=== PATIENT | female | born 1955 | race Caucasian/White ===

== ENCOUNTER 2019-04-13 21:32 | Inpatient (IN) | payer OTHER ==
[~2019-04-13] VITALS: Ht 167.6 cm; Wt 69.4 kg
[~2019-04-13 21:32] MED LIST: ASPI-1 PO; ATOR1TAB19 PO; GABA-843 PO; PANT40TA3 PO; PERC5TAB12 PO; SERT-138 PO; SUCR1TAB56 PO; ZANA4TAB PO
[2019-04-13] MEDS ORDERED: NS 1,000 ML IV ONE (22:15)
[2019-04-13 22:32] LABS: BASO % 0.4 % (0.0-1.0); EOS # 0.1 10^3/uL (0.0-0.50); EOS % 0.5 % (0.0-3.0); HEMATOCRIT 40.3 % (36.0-47.0); HEMOGLOBIN 13.8 g/dl (12.0-15.5); LYMPH # 1.4 10^3/uL (1.5-4.5); LYMPH % 13.6 % (24.0-44.0); MEAN CORPUSCULAR HEMOGLOBIN 30.3 pg (27.0-33.0); MEAN CORPUSCULAR HGB CONC 34.2 g/dl (32.0-36.5); MEAN CORPUSCULAR VOLUME 88.6 fl (80.0-96.0); MONO # 0.5 10^3/uL (0.0-0.8); MONO % 5.1 % (0.0-5.0); NEUTROPHILS # 8.3 10^3/uL (1.8-7.7); NEUTROPHILS % 80.1 % (36.0-66.0); PLATELET COUNT, AUTOMATED 165 10^3/uL (150-450); RED BLOOD COUNT 4.55 10^6/uL (4.00-5.40); WHITE BLOOD COUNT 10.3 10^3/uL (4.0-10.0)
[2019-04-13] MEDS ORDERED: ACETAMINOPHEN TAB 650MG DOSE (2X325MG) PO ONE (23:00)
[2019-04-13] MEDS ORDERED: ONDANSETRON 4MG/2ML VIAL (J2405) IV ONE (23:00)
[2019-04-13 23:13] LABS: BLOOD UREA NITROGEN 14 MG/DL (7-18); CALCIUM LEVEL 9.7 MG/DL (8.8-10.2); CARBON DIOXIDE LEVEL 26 MEQ/L (21-32); CHLORIDE LEVEL 109 MEQ/L (98-107); CPK CREATINE PHOSPHOKINASE 144 U/L (26-192); CREATININE FOR GFR 0.95 MG/DL (0.55-1.30); GLOMERULAR FILTRATION RATE > 60.0 (>45); GLUCOSE, FASTING 147 MG/DL (70-100); POTASSIUM SERUM 3.8 MEQ/L (3.5-5.1); SODIUM LEVEL 144 MEQ/L (136-145)
[2019-04-14 00:49] LABS: ETHYL ALCOHOL (ETHANOL) < 0.003 % (0.000-0.010)
[2019-04-14 01:51] LABS: AMPHETAMINES LEVEL URINE NEGATIVE (NEGATIVE); BARBITURATES URINE NEGATIVE (NEGATIVE); BENZODIAZEPINES URINE POSITIVE (NEGATIVE); CANNABINOIDS URINE POSITIVE (NEGATIVE); COCAINE METABOLITE URINE NEGATIVE (NEGATIVE); METHADONE URINE NEGATIVE (NEGATIVE); OPIATES URINE NEGATIVE (NEGATIVE); PHENCYCLIDINE URINE NEGATIVE (NEGATIVE)
[2019-04-14] MEDS ORDERED: ACETAMINOPHEN TAB 650MG DOSE (2X325MG) PO PRN (02:30)
[2019-04-14] MEDS ORDERED: OLANZapine ORAL DISINTEGRATING TAB 5MG PO PRN (02:30)
[2019-04-14] MEDS ORDERED: MOM 30ML SUSPENSION UDC PO PRN (02:30)
[2019-04-14] MEDS ORDERED: traZODone 50 MG TAB PO PRN (02:30)
[2019-04-14] MEDS ORDERED: MAALOX 30 ML SUSP *UDC PO PRN (02:30)
[2019-04-14] MEDS ORDERED: cloNIDine 0.2 MG TAB As Ordered ONE (02:54)
[2019-04-14] MEDS ORDERED: cloNIDine 0.2 MG TAB PO ONE (03:00)
[2019-04-14 03:44] VITALS: BP 141/93
--- NOTE | 2019-04-14 10:34 | MHHPEPDOC ---
[facility] History & Physical History and Physical New Patient Estrella Ascencio MRN: N/[id number] Date of : N/A Date of Service: 04/14/2019 Chief Complaint "I don't know why I'm here." History of Present Illness The patient a 63-year-old woman with no known past psychiatric history presents to the ER, initially dehydrated, found wandering in the streets during a heat wa ve. She was fairly dehydrated after being rehydrated in the ER unit. She was subsequently found to be fairly distorted and unable to maintain any coherent discussion. She appeared to be disorganized and bizarre. Collateral information from friends and family in the local area report that she had recently appeared in the area unbeknownst to them and had been acting fairly bizarre when she had approached them. It was difficult to gather any history as the patient's fairly tangential and very unredirectable. Review Of Systems The patient was too unredirectable in order to get a coherent set of review of systems. Past Psychiatric History The patient has no previous psych admissions per collateral information. Reportedly, her primary care prescribed her Zoloft for "back pain," but has never reportedly seen a psychiatrist or been treated with other medications. Unknown if any history of suicide attempts. Allergies Please see below. Family Psychiatric History Unclear if any family history. Social History The patient reportedly lives with her of one year. She reportedly lives in [place], however, it's unclear how she arrived in this area where she reportedly has some friends. Substance Abuse History The patient reportedly uses marijuana daily and smokes tobacco as evidenced by her toxicology. Medical History Has a history of a repaired aortic aneurysm and hypertension. Mental Status Examination General: Fair hygiene Speech: Pressured Thought processes: Tangential MSK: Smooth and coordinated gait, no signs of tremors or involuntary orofacial movements Thought content: Bizarre Abstract reasoning, and computation: Impaired Description of associations: Loose Description of abnormal or psychotic thoughts: Denies any suicidal or homicidal ideation. Denies any auditory or visual hallucinations. Does not appear to be responding to internal stimuli. The patient describes a fairly bizarre set of ideals Judgment: Poor Insight: Poor Orientation: Alert and orientated 3 Cognition: Grossly normal Recent and remote memory: Intact Attention span and concentration: Intact Fund of knowledge: Adequate Mood: "Fine" Affect: Highly labile Diagnoses Unspecified psychotic disorder. Rule out substance induced versus bipolar disorder. Assessment and Plan The patient a 63-year-old woman with a reported small use of an SSRI as an outpatient with no other known psychiatric history presents in a psychotic state. She is very difficult to get a history from and her collateral information does not reveal significant psychiatric history as her age group is unlikely to experience first time manic episodes from bipolar disorder. Disposition The patient will need a further inpatient stay in order to treat her significant tangentiality and psychotic symptoms. Problem List 1. Altered thoughts. 2. Substance abuse. 3. Padmini. Initial Treatment Plan 1. Patient was admitted on a 38 legal status. 2. Complete history was obtained. 3. With patients permission, family will be contacted and database will be expanded. 4. Patients medication regimen will be reviewed and changed accordingly. 5. Patient will be provided with protected environment. 6. Patient will be treated with individual, group, and milieu therapies. 7. Patient will receive supportive psych-education. 8. Discharge planning will commence immediately. 9. Outpatient follow-up treatment will be strongly recommended. 10. The initial treatment plan will focus initially on: Starting Zyprexa 5 mg nightly. Discussed with patient discontinuing Sertraline as potential provoking agent for padmini in the absence of confirmed substance related bipolar disorder. Estimated Length Of Stay Time Spent 30 minutes. Sunday Vital Signs Vital Signs Date Time Temp Pulse Resp B/P (MAP) Pulse Ox O2 Delivery O2 Flow Rate FiO2 04/14/19 03:44 97.6 72 22 141/93 (109) 04/14/19 02:52 Room Air 04/13/19 21:35 99 Laboratory Data 24H Labs Laboratory Tests 2 04/13/19 22:16: Immature Granulocyte % (Auto) 0.3, White Blood Count 10.3H, Red Blood Count 4.55, Hemoglobin 13.8, Hematocrit 40.3, Mean Corpuscular Volume 88.6, Mean Corpuscular Hemoglobin 30.3, Mean Corpuscular Hemoglobin Concent 34.2, Red Cell Distribution Width 12.5, Platelet Count 165, Neutrophils (%) (Auto) 80.1H, Lymphocytes (%) (Auto) 13.6L, Monocytes (%) (Auto) 5.1H, Eosinophils (%) (Auto) 0.5, Basophils (%) (Auto) 0.4, Neutrophils # (Auto) 8.3H, Lymphocytes # (Auto) 1.4L, Monocytes # (Auto) 0.5, Eosinophils # (Auto) 0.1, Basophils # (Auto) 0.0, Nucleated Red Blood Cells % (auto) 0.0, Anion Gap 9, Glomerular Filtration Rate > 60.0, Blood Urea Nitrogen 14, Creatinine 0.95, Sodium Level 144, Potassium Level 3.8, Chloride Level 109H, Carbon Dioxide Level 26, Calcium Level 9.7, Total Creatine Kinase 144, Thyroid Stimulating Hormone (TSH) 3.090, Ethyl Alcohol Level < 0.003 04/13/19 23:13: Urine Color YELLOW, Urine Appearance CLOUDYH, Urine pH 8.0, Urine Specific [place] 1.017, Urine Protein 1+H, Urine Glucose (UA) NEGATIVE, Urine Ketones 1+H, Urine Blood 1+H, Urine Nitrite NEGATIVE, Urine Bilirubin NEGATIVE, Urine Urobilinogen 0.2, Urine Leukocyte Esterase TRACEH, Urine WBC (Auto) 5H, Urine RBC (Auto) 17H, Urine Hyaline Casts (Auto) 4, Urine Bacteria (Auto) NEGATIVE, Urine Squamous Epithelial Cells 9, Urine Transitional Epithelial Cells <1, Urine Amorphous Sediment SMALLH, Urine Sperm (Auto) 04/14/19 01:17: Urine Amphetamines Screen NEGATIVE, Urine Benzodiazepines Screen POSITIVEH, Urine Opiates Screen NEGATIVE, Urine Methadone Screen NEGATIVE, Urine Barbiturates Screen NEGATIVE, Urine Phencyclidine Screen NEGATIVE, Urine Cocaine Metabolite Screen NEGATIVE, Urine Cannabinoids Screen POSITIVEH CBC/BMP Laboratory Tests 04/13/19 22:16 Red Blood Count 4.55, Mean Corpuscular Volume 88.6, Mean Corpuscular Hemoglobin 30.3, Mean Corpuscular Hemoglobin Concent 34.2, Red Cell Distribution Width 12.5, Neutrophils (%) (Auto) 80.1 H, Lymphocytes (%) (Auto) 13.6 L, Monocytes (%) (Auto) 5.1 H, Eosinophils (%) (Auto) 0.5, Basophils (%) (Auto) 0.4, Neutrophils # (Auto) 8.3 H, Lymphocytes # (Auto) 1.4 L, Monocytes # (Auto) 0.5, Eosinophils # (Auto) 0.1, Basophils # (Auto) 0.0, Calcium Level 9.7 Medications Scheduled Aspirin (Aspirin) 325 Mg Tab, 1 TAB PO DAILY X 3 Weeks Atorvastatin Calcium (Atorvastatin Calcium) 10 Mg Tab, 10 MG PO DAILY, (Reported) Pantoprazole Sodium (Pantoprazole Sodium) 40 Mg Tab, 40 MG PO DAILY, (Reported) Sertraline HCl (Sertraline HCl) 100 Mg Tab, 100 MG PO DAILY, (Reported) Tizanidine HCl (Zanaflex) 4 Mg Tab, 4 MG PO BID, (Reported) Allergies Coded Allergies: latex (Verified Allergy, Unknown, rash, 04/13/19) EDVIN BAH DO Apr 14, 2019 10:34
[2019-04-14] MEDS ORDERED: VALSARTAN 80 MG TAB (DIOVAN) PO SCH (12:30)
[2019-04-14] MEDS: ACETAMINOPHEN 500 MG TAB PO PRN (12:48)
[2019-04-14 14:29] VITALS: BP 166/106
[2019-04-14] MEDS ORDERED: cloNIDine 0.1 MG TAB PO STA (14:32)
[2019-04-14 15:50] VITALS: BP 148/100
[2019-04-14 18:00] VITALS: BP 149/102
[2019-04-14] MEDS: OLANZapine 5 MG TAB PO SCH (21:57)
[2019-04-14 22:00] VITALS: BP 176/92
[2019-04-14] MEDS: VALSARTAN 80 MG TAB (DIOVAN) PO SCH (22:01)
[2019-04-14] MEDS: cloNIDine 0.1 MG TAB PO SCH (22:02)
[2019-04-14 23:00] VITALS: BP 160/92
[2019-04-15] MEDS ORDERED: METOPROLOL TART 25 MG TABLET PO ONE
[2019-04-15] MEDS: cloNIDine 0.1 MG TAB PO SCH ×3 (06:00→21:59)
[2019-04-15 06:42] VITALS: BP 123/57
[2019-04-15] MEDS: ASPIRIN ENTERIC 325 MG TAB PO SCH (09:09)
[2019-04-15] MEDS: PANTOPRAZOLE 40MG TAB (PROTONIX) PO SCH (09:09)
[2019-04-15] MEDS: VALSARTAN 80 MG TAB (DIOVAN) PO SCH ×2 (09:10→20:26)
[2019-04-15] MEDS: ACETAMINOPHEN 500 MG TAB PO PRN (09:27)
--- NOTE | 2019-04-15 12:34 | MHIPNPDOC ---
[facility] Progress Note Progress Note Date of Service: 04/15/2019 History of Present Illness The patient a 63-year-old woman with no known past psychiatric history presents to the ER, initially dehydrated, found wandering in the streets during a heat wave. She was fairly dehydrated after being rehydrated in the ER unit. She was subsequently found to be fairly distorted and unable to maintain any coherent discussion. She appeared to be disorganized and bizarre. Collateral information from friends and family in the local area report that she had recently appeared in the area unbeknownst to them and had been acting fairly bizarre when she had approached them. It was difficult to gather any history as the patient's fairly tangential and very unredirectable. Interval History The patient's met with today where she reports having a much better night sleep. She is much more able to be interviewed and is less tangential. Collateral information from her reveals that the patient at baseline is fairly tangential and at times difficult to redirect. She describes that she came in for dehydration and was really upset to be admitted to the inpatient psychiatric [facility]. She states she had never seen a psychiatrist before and felt she did not need to. Staff report no issues on the unit, has been attending to her needs well, attending groups frequently. Review Of Systems Denies any side effects from her Zyprexa such as tremor or GI upset. Psychotherapy None on this visit. Vital Signs Reviewed. Mental Status Examination General: Well dressed with good hygiene Speech: Spontaneous and fluid Thought processes: Mildly circumstantial, but redirectable MSK: Smooth and coordinated gait, no signs of tremors or involuntary orofacial movements Thought content: Future orientated Abstract reasoning, and computation: Intact Description of associations: Intact Description of abnormal or psychotic thoughts: Denies any suicidal or homicidal ideation. Denies any auditory or visual hallucinations. Does not appear to be responding to internal stimuli. Does not appear to be endorsing any bizarre or paranoid ideation. Judgment: fair Insight: fair Orientation: Alert and orientated 3 Cognition: Grossly normal Recent and remote memory: Intact Attention span and concentration: Intact Fund of knowledge: Adequate Mood: "okay" Affect: Euthymic with a full range Diagnoses Unspecified psychotic disorder. Rule out substance induced versus bipolar disorder. Assessment and Plan The patient appears to be making significant Improvement on Zyprexa 5 mg nightly. It's not clear whether she has bipolar disorder that is fairly complex in her older age or more likely substance induced cannabis psychotic disorder as this is far more likely. Disposition The patient will be discharged tomorrow as she wishes to go and no longer meets involuntary criteria and has elected against a voluntary continuation of her admission. Time Spent 15 minutes [id number]. Sunday Vital Signs Vital Signs Date Time Temp Pulse Resp B/P (MAP) Pulse Ox O2 Delivery O2 Flow Rate FiO2 04/15/19 09:10 158/76 04/15/19 06:42 97.8 54 12 04/14/19 02:52 Room Air 04/13/19 21:35 99 Current Medications Current Medications Acetaminophen (Tylenol Tab) 650 mg Q6HP PRN PO HEADACHE or DISCOMFORT; Start 04/14/19 at 02:30; Stop 04/14/19 at 10:51; Status DC Acetaminophen (Tylenol Tab) 1,000 mg Q8HP PRN PO PAIN / FEVER Last administered on 04/15/19at 09:27; Start 04/14/19 at 11:00 Al Hydrox/Mg Hydrox/Simethicone (Mylanta) 30 ml Q4HP PRN PO HEARTBURN/INDIG ESTION; Start 04/14/19 at 02:30 Aspirin (Ecotrin) 325 mg DAILY PO Last administered on 04/15/19at 09:09; Start 04/15/19 at 09:00 Clonidine HCl (Catapres) 0.1 mg Q8H PO Last administered on 04/14/19at 22:02; Start 04/14/19 at 22:00 Clonidine HCl (Catapres) 0.1 mg STAT STAT PO Last administered on 04/14/19at 14:38; Start 04/14/19 at 14:32; Stop 04/14/19 at 14:36; Status DC Magnesium Hydroxide (Milk Of Magnesia) 30 ml DAILYPRN PRN PO CONSTIPATION; Start 04/14/19 at 02:30 Olanzapine (ZyPREXA ZYDIS) 5 mg Q8HP PRN PO ANXIETY/AGITATION; Start 04/14/19 at 02:30 Olanzapine (ZyPREXA) 5 mg QHS PO Last administered on 04/14/19at 21:57; Start 04/14/19 at 21:00 Pantoprazole Sodium (Protonix) 40 mg DAILY PO Last administered on 04/15/19at 09:09; Start 04/15/19 at 09:00 Trazodone HCl (Desyrel) 50 mg QHSP PRN PO INSOMNIA; Start 04/14/19 at 02:30 Valsartan (Diovan) 80 mg BID PO Last administered on 04/15/19at 09:10; Start 04/14/19 at 21:00 Valsartan (Diovan) 80 mg DAILY PO Last administered on 04/14/19at 12:57; Start 04/14/19 at 12:30; Stop 04/14/19 at 16:57; Status DC Allergies Coded Allergies: latex (Verified Allergy, Unknown, rash, 04/13/19) EDVIN BAH DO Apr 15, 2019 12:34
[2019-04-15 14:20] VITALS: BP 174/100
[2019-04-15 15:47] VITALS: BP 172/100
[2019-04-15 18:00] VITALS: BP 134/90
--- NOTE | 2019-04-15 18:22 | HPE ---
DATE OF ADMISSION: 04/14/2019 HISTORY OF THE PRESENT ILLNESS: Please refer to psychiatric history and evaluation for further details on this admission. This examination and history is intended for medical issues which may need treatment, followup, or consult on this 63-year-old female. ALLERGIES: LATEX. PRIMARY CARE PROVIDER: She states she sees a Dr. Llanes in [place], [place]. SOCIAL HISTORY: She is . She states she was in [place] for a . Ethyl alcohol: Occasionally. Smokes: None. Recreational drug use: Marijuana. PAST MEDICAL HISTORY: Hypercholesterolemia. Gastroesophageal reflux disease (GERD). Depression. PAST SURGICAL HISTORY: She states she has had a bowel resection. She states she has had a patch for repair and aneurysm of the ascending aorta. HOME MEDICATIONS: - aspirin 325 mg by mouth daily - atorvastatin 10 mg by mouth daily - Protonix 40 mg by mouth daily - sertraline 100 mg by mouth daily - tizanidine 4 mg by mouth twice a day FAMILY HISTORY: She states her mother of cancer. Father of a brain aneurysm. LABORATORY STUDIES: WBC was 10.3, hemoglobin 13.8, hematocrit 40.3, platelets 165. Sodium was 144, potassium 3.8, chloride 109, CO2 was 26, anion gap 9, BUN 14, creatinine 0.95. Nonfasting glucose 147, calcium 9.7, CPK 144, TSH 3.090. Urine toxicology was positive for benzodiazepines, positive for cannabinoids. Urine culture was sent. Urinalysis showed cloudy urine, 1+ protein, 1+ ketone, 1+ blood. Trace leukocyte esterase. REVIEW OF SYSTEMS: Eleven systems review was done. She had no pertinent complaints other than a dull headache, which she said was improving. No blurred or double vision. No fever, no chills, no tinnitus, no hoarseness. No difficulty swallowing. No lightheadedness, no vertigo. Breasts: No masses. Cardiovascular: No complaints of chest pain, shortness of breath, palpitations or edema. Respiratory: No chronic cough. No sputum production. No hemoptysis. No orthopnea. No wheeze. Gastrointestinal (GI): No complaints of nausea, vomiting or diarrhea. No hematochezia. No melena. No complaints of abdominal pain. Genitourinary (): No hematuria, dysuria, frequency. Musculoskeletal: No joint redness or swelling. Endocrine: No polyuria, polydipsia, polyphagia. Hematologic: No history of anemia. Neurological: No history of seizures. No paresthesias or paralysis. Psychological: See psychiatric history of the present illness. PHYSICAL EXAMINATION: A 63-year-old cooperative female in no acute distress. Current blood pressure 141/93, pulse 72, respirations 20, temperature 97.6, height 66 inches, weight 69.4 kg, body mass index (BMI) 24.7. Patient is alert and oriented to person, place and time. Pupils are equal and reactive to light. Extraocular movements intact. Cornea and sclerae clear. Conjunctivae is normal. No facial asymmetry. Pharynx: Tongue and gums pink and moist. Tongue is midline. Neck is supple without lymphadenopathy. No thyromegaly. No goiter. Carotids 2+ without bruits. Chest is clear to auscultation without wheeze or retractions. Heart is regular. Abdomen benign. Bowel sounds are positive. Genital/Rectal: Not done. Extremities show equal strength, full range of motion. No cyanosis, clubbing or edema. Peripheral pulses equal and palpable bilaterally. Skin is warm and dry. IMPRESSION AND PLAN: Psychiatric plan per psychiatry. Elevated blood pressure. Patient states she has never been on medications. Of note, it was elevated in the emergency room (ER) 160/86, 189/100, 171/91. At the time of this exam, 141/93. I will start the patient on valsartan 80 mg by mouth daily. Will continue to follow the patient while on MU until blood pressure stabilizes. History of GERD. Continue Protonix 40 mg by mouth daily. No other acute medical issues. Edited 04/17/2019 [facility]
[2019-04-15] MEDS: OLANZapine 5 MG TAB PO SCH (20:23)
[2019-04-16] MEDS: cloNIDine 0.1 MG TAB PO SCH (06:00)
[2019-04-16 06:37] VITALS: BP 119/63
[2019-04-16] MEDS: PANTOPRAZOLE 40MG TAB (PROTONIX) PO SCH (08:42)
[2019-04-16] MEDS: ASPIRIN ENTERIC 325 MG TAB PO SCH (08:42)
[2019-04-16] MEDS: ACETAMINOPHEN 500 MG TAB PO PRN (08:47)
[2019-04-16 08:55] VITALS: BP 150/100
[2019-04-16] MEDS: VALSARTAN 80 MG TAB (DIOVAN) PO SCH (08:55)
[2019-04-16] MEDS ORDERED: CLONI1TA PO ×2 (10:41→12:58)
[2019-04-16] MEDS ORDERED: DIOV80TA3 PO ×2 (10:41→12:58)
[2019-04-16] MEDS ORDERED: OLAN5TAB PO ×2 (10:41→12:58)
--- NOTE | 2019-04-16 14:30 | MHDSPDOC ---
[facility] Discharge Summary Discharge Summary DATE OF ADMISSION: Apr 14, 2019 at 02:17 DATE OF DISCHARGE: Apr 16, 2019 at 11:25 Date of Service: 04/16/2019 Diagnoses Unspecified psychotic disorder. Likely substance-induced. Cannabis use disorder, severe. History of Present Illness The patient a 63-year-old woman with no known past psychiatric history presents to the ER, initially dehydrated, found wandering in the streets during a heat wave. She was fairly dehydrated after being rehydrated in the ER unit. She was subsequently found to be fairly distorted and unable to maintain any coherent di scussion. She appeared to be disorganized and bizarre. Collateral information from friends and family in the local area report that she had recently appeared in the area unbeknownst to them and had been acting fairly bizarre when she had approached them. It was difficult to gather any history as the patient's fairly tangential and very unredirectable. Consultants Involved Hospitalist/PCP screening Recommended blood pressure medication due to patient's hypertension that stabilized her blood pressure significantly well. Treatment and Progress On The Unit The patient was admitted to the inpatient unit and was noted to be fairly larkin gential at times with a difficult ability to focus on describing the events that had led her into the unit. She was started initially on Zyprexa 5 mg daily with significant improvement. She had a notable ability to relate her story and become much less tangential, more circumstantial in nature. Collateral information from her revealed that at baseline she generally tends to be circumstantial, however, her presentation was reportedly "dehydrated" where she was fairly bizarre, running to her friend's home without notifying is fairly unusual. She was able to attend to her needs on the unit. Demonstrated no suicidal or homicidal ideation and was subsequently triaged for discharge when she requested as she no longer met involuntary criteria and did not wish to elect a further stay. She was started on blood pressure medication as listed below, but she was discharged with a 7-day supply with full refills as our protocol requires. She will be following up in [place] for mental health as she currently lives there. She'll be staying there for 3 days. Discharge Assessment The patient a 63-year-old woman with a history of cannabis use that likely provoked a mild psychotic episode, presents and is fairly easily treated with a low dose Zyprexa. Her relays that at baseline she is fairly tangential and this is likely a personality trait. She is at low risk for self-harm or harm to others after 3 days of observation. She will be following up with her primary care as we've arranged this due to her high blood pressure and history of aortic surgeries. Mental Status Examination General: Well dressed with good hygiene Speech: Spontaneous and fluid Thought processes: Mildly circumstantial, but redirectable MSK: Smooth and coordinated gait, no signs of tremors or involuntary orofacial movements Thought content: Future orientated Abstract reasoning, and computation: Intact Description of associations: Intact Description of abnormal or psychotic thoughts: Denies any suicidal or homicidal ideation. Denies any auditory or visual hallucinations. Does not appear to be responding to internal stimuli. Does not appear to be endorsing any bizarre or paranoid ideation. Judgment: fair Insight: fair Orientation: Alert and orientated 3 Cognition: Grossly normal Recent and remote memory: Intact Attention span and concentration: Intact Fund of knowledge: Adequate Mood: "okay" Affect: Euthymic with a full range Follow Up The social work team worked during the predischarge meeting in order to evaluate for further issues of lethality address them fully before discharge. They worked on safety planning with the patient's family members in order to ensure that the patient will have a safe and effective discharge. Discharge medications Zyprexa 5 mg nightly with blood pressure medications as listed below. Time Spent The amount of time spent in the coordination of care for this patient was approximately 30 minutes. Sunday Vital Signs/I&Os Vital Signs Date Time Temp Pulse Resp B/P (MAP) Pulse Ox O2 Delivery O2 Flow Rate FiO2 04/16/19 08:55 150/100 04/16/19 06:37 97.8 57 14 04/14/19 02:52 Room Air 04/13/19 21:35 99 Laboratory Data Microbiology Microbiology 04/13/19 Urine Culture - Final, Complete Medications Scheduled Aspirin (Aspirin) 325 Mg Tab, 1 TAB PO DAILY, #21 X 3 Weeks Atorvastatin Calcium (Atorvastatin Calcium) 10 Mg Tab, 10 MG PO DAILY, (Reported) Clonidine Hcl (Clonidine HCl) 0.1 Mg Tablet, 0.1 MG PO Q8H for htn for 7 Days, #21 Olanzapine (Olanzapine) 5 Mg Tablet, 5 MG PO QHS for mood for 7 Days, #7 Pantoprazole Sodium (Pantoprazole Sodium) 40 Mg Tab, 40 MG PO DAILY, (Reported) Tizanidine HCl (Zanaflex) 4 Mg Tab, 4 MG PO BID, (Reported) Valsartan (Diovan) 80 Mg Tablet, 80 MG PO BID for HTN for 7 Days, #14 Allergies Coded Allergies: latex (Verified Allergy, Unknown, rash, 04/13/19) EDVIN BAH DO Apr 16, 2019 14:29
== END 2019-04-16 11:25 | disposition home or self-care (01) | DRG 885 ==
LOC: M ED 21:32 → M ED INP 04-14 02:17 → M PSY 04-14 03:35
PROVIDERS: ADMIT Psychiatry & Neurology Psychiatry; ATTEND Psychiatry & Neurology Addiction Medicine
DX: F29 Unspecified psychosis not due to a substance or known physiological condition (principal); F12.90 Cannabis use, unspecified, uncomplicated; E86.0 Dehydration; Z79.899 Other long term (current) drug therapy; Z91.040 Latex allergy status; Z79.82 Long term (current) use of aspirin; E78.00 Pure hypercholesterolemia, unspecified; K21.9 Gastro-esophageal reflux disease without esophagitis